=== PATIENT | female | born 1980 | race Caucasian/White ===

== ENCOUNTER 2022-04-27 07:42 | Emergency (ER) | payer BC, SELFPAY ==
--- NOTE | ~2022-04-27 | CT_ITS ---
EXAMINATION: CT HEAD WITHOUT CONTRAST CT FACIAL BONES WITHOUT CONTRAST CT CERVICAL SPINE WITHOUT CONTRAST CLINICAL INFORMATION: Hit head, syncope. Pain. Hit face. COMPARISON: None. TECHNIQUE: Imaging was performed from the skull base to vertex without intravenous administration of contrast. In addition, helical noncontrast CT imaging was acquired through the cervical spine and facial bones and source images were reviewed along with axial reconstructions and sagittal and coronal MPRs. This CT examination was performed using dose optimization techniques as appropriate, variously including the following: *Automated exposure control *Adjustment of mA and/or kV according to patient size (this includes techniques or standardized protocols for targeted exams where dose is matched to indication/reason for exam; i.e. extremities or head) *Use of iterative reconstruction technique Total exam dose-length product 441+750+528 mGy-cm FINDINGS: HEAD: No intracranial mass, hemorrhage, or midline shift is visualized. The ventricles and sulci are age-appropriate. No extra-axial collections are identified. There is some ill-defined low density involving the left frontal cortex, for example series 4 image 34. FACIAL BONES: Left frontal and periorbital soft tissue swelling and hematoma seen. No depressed nasal bone fracture. No facial or orbital bone fracture. There is a fluid level in the right maxillary sinus. Bilateral ethmoid, sphenoid, and maxillary sinus mucosal thickening. CERVICAL SPINE: There is no evidence of acute cervical spine fracture. Vertebral bodies remain normal in height, intervertebral disc spaces are preserved, and alignment is anatomic. No pre- or paravertebral soft tissue abnormality is identified. Limited assessment of the lung apices is unremarkable. CT/CT head/brain wo con IMPRESSION: Ill-defined low attenuation in the left medial frontal cortex. In the setting of acute trauma this could represent an area of parenchymal contusion. Alternatively, an area of evolving encephalomalacia or gliosis could have a similar appearance, though there is no evidence of associated volume loss. An MRI of the brain may be helpful for further evaluation. Left frontal, supraorbital, and periorbital soft tissue swelling and hematoma. No underlying skull fracture. No acute osseous abnormality of the cervical spine. The report will be called to the ordering clinician by a [place] [facility] [employer] [employer].
[2022-04-27 07:47] VITALS: BP 158/98; PULSE 76; RESP 16; TEMP 36.9; O2SAT 98; BMI 29.8
[2022-04-27 09:30] VITALS: BP 154/109; PULSE 71; RESP 11; TEMP 36.7; O2SAT 97
--- NOTE | 2022-04-27 09:48 | ECG_ITS ---
Test Reason : fall Blood Pressure : / mmHG Vent. Rate : 059 BPM Atrial Rate : 059 BPM P-R Int : 158 ms QRS Dur : 084 ms QT Int : 416 ms P-R-T Axes : 061 019 016 degrees QTc Int : 411 ms Sinus bradycardia Otherwise normal ECG No previous ECGs available Referred By: Brenda Lemus Electronically Signed By:Conor Weller
[2022-04-27 10:02] LABS: MANUAL DIFF FLAG NO
[2022-04-27 10:03] LABS: Basophils Absolute Auto 0.1 X10*3/uL (0.0-0.2); Basophils Percent Auto 0.5 % (0-2); Eosinophils Absolute Auto 0.1 X10*3/uL (0.0-0.4); Eosinophils Percent Auto 0.8 % (0-4); Hematocrit 41.6 % (37.0-47.0); Hemoglobin 13.8 g/dl (12.0-16.0); Imm Gran Abs Auto 0.06 X10*3/uL (0.00-0.03); Imm Gran Pct Auto 0.4 % (0.0-0.4); Lymphocytes Absolute Auto 1.2 X10*3/uL (1.2-4.9); Lymphocytes Percent Auto 8.7 % (20-40); Mean Corpuscular HGB Conc 33.2 g/dl (31.0-35.0); Mean Corpuscular Hemoglobin 30.3 pg (27.0-33.0); Mean Corpuscular Volume 91.4 fL (80.0-98.0); Mean Platelet Volume 11.2 fL (9.4-12.3); Monocytes Absolute Auto 0.9 X10*3/uL (0.1-1.2); Monocytes Percent Auto 6.7 % (2-11); Neutrophils Absolute Auto 11.2 x10*3/uL (2.0-8.3); Neutrophils Percent Auto 82.9 % (45-73); Platelet Count 237 X10*3/uL (160-400); Red Blood Count 4.55 X10*6/uL (4.20-5.50); Red Cell Distribution Width 13.6 % (11.0-16.0); White Blood Count 13.5 X10*3/uL (4.8-10.8)
[2022-04-27 10:20] VITALS: BP 159/98; PULSE 66; RESP 18; O2SAT 98
--- NOTE | 2022-04-27 10:22 | ED_ITS ---
HPI - Fall General Chief Complaint: Fall Stated Complaint: passed out hit head, dizzy,neckpain Time Seen by Provider: 04/27/22 09:40 Source: patient Mode of arrival: ambulatory Limitations: no limitations History of Present Illness HPI Narrative: This is a 41-year-old female who has a history of syncopal episodes, anxiety, depression, hypertension presents with reports of fall which occurred while sitting on the toilet. Patient tells me she was sitting on the toilet and had some lower abdominal cramping. She tells me that she started to have tunnel vision and felt lightheaded falling forward striking her face on the tub. She believe she may have had a brief loss of consciousness. The heard her f all and went into the bathroom. He feels that after the fall she was slightly confused. It took her several seconds and she seemed to be back her baseline. He denies any shaking activity. No incontinence. Patient on arrival reports headache and neck discomfort. She denies any dizziness, vision changes, nausea or vomiting. She is not on any anticoagulation. She denies any weakness, numbness or tingling of the upper extremities. No chest or abdominal pain. Related Data Allergies Allergy/AdvReac Type Severity Reaction Status Date / Time Unable to Assess Allergy Verified 04/27/22 09:48 Review of Systems Review of Systems: Yes all other systems are reviewed and are negative Constitutional: Constitutional: Reports no additional constitutional complaints, Denies body ache(s), Denies chills, Denies fever(s), Reports headache(s) and Denies weakness Eyes: Eyes: Reports no additional eye complaints and Denies change in vision ENT: Reports system reviewed and no additional complaints, except as documented, Denies dizziness, Reports headache(s), Denies nasal congestion, Denies nasal discharge and Reports neck pain Cardiovascular: Cardiovascular: Reports no additional cardiovascular complaints, Denies chest pain, Denies leg edema and Denies dyspnea Respiratory: Respiratory: Reports no additional respiratory complaints, Denies cough and Denies dyspnea Gastrointestinal: Gastrointestinal: Reports no additional gastrointestinal complaints, Denies abdominal pain, Denies diarrhea, Denies nausea and Denies vomiting Genitourinary: Genitourinary: Reports no additional female genitourinary com plaints and Denies urinary incontinence Musculoskeletal: Musculoskeletal: Reports no additional musculoskeletal complaints, Denies back pain, Denies arthralgias, Denies joint swelling, Reports neck pain, Denies numbness and Denies tingling Integumentary/Breasts: Skin/Breast: Reports system reviewed and no additional complaints, except as docu and Denies rash Neurologic: Reports system reviewed and no additional complaints, except as documented, Denies Abnormal speech present, Denies dizziness, Reports headache(s), Denies numbness, Denies tingling and Denies weakness ON LICENSE OF [facility] Past Medical History Attestation statement: The following information was validated with the patient. Source: old records reviewed and nursing notes reviewed Medical History Anxiety Depression GERD (gastroesophageal reflux disease) HTN (hypertension) Social History Social History Alcohol intake: current Alcohol intake frequency: a few times a week Patient Tobacco Use Status: Current everyday Tobacco user Use of substances other than those prescribed or required for medical reasons: No Advance Directives: No Advance Directives Information Provided: Yes Patient : No Physical Exam Vital Signs: Vital Signs: Last Vital Signs Temp 98.0 F 04/27/22 09:30 Pulse 68 04/27/22 10:32 Resp 18 04/27/22 10:20 BP 156/105 H 04/27/22 10:32 Pulse Ox 98 04/27/22 10:20 O2 Del Method 04/27/22 10:20 BMI result Body Mass Index 29.8 Const: General: cooperative, healthy appearing, comfortable and no acute distress Orientation/consciousness: patient oriented x3 Limitations: no limitations HEENT: Head: Yes normal to inspection, No Butt's sign and Yes periorbital ecchymosis Head images: 1. Ears: hearing grossly normal bilaterally and TM's normal bilaterally General nose exam: Normal external nose present Face and sinus: Yes normal facial exam Mouth: Normal oral and palatal mucosa present Throat: Yes posterior oropharynx normal, Yes tonsils normal and Yes uvula midline Eyes: General: appearance normal, both eyes and all related structures Pupils: Equal, round and reactive pupils present Neck: Other: Cervical midline tenderness with no step-offs or deformities. Neck: Yes normal visual inspection, Yes full ROM and Yes no lymphadenopathy Chest: Chest palpation & inspection: normal inspection of the chest Resp: Effort & Inspection: normal respiratory effort Auscultation: clear to auscultation bilaterally Cardio: Rate: regular rate Rhythm: regular rhythm Peripheral pulses: Peripheral pulses 2+ throughout GI: Inspection: Yes normal to inspection Palpation (GI): Soft to palpation and nontender Auscultation: normal bowel sounds Back/Spine/Pelvis: Thoracic/Lumbar Spine: thoracic and lumbar spine normal to inspection Skin: General skin exam: no rashes or lesions noted Neuro: General: patient oriented x3, moves all extremities, no focal motor deficits and normal sensation to monofilament Cranial nerves: Yes CN's II-XII intact bilaterally, Yes Equal, round and reactive pupils present, Yes Bilaterally intact EOM present, Yes Nystagmus not present, Yes Normal facial strength present and Yes Midline tongue present Cognition (Neuro): normal cognition Speech: No Abnormal speech present Gait exam (Neuro): Normal gait present Motor exam (neuro): 5/5 motor strength present throughout S ensory Exam: Normal double simultaneous stimulation for sensation Extrem: General: Yes normal to inspection NIH Stroke Scale Internal: Initial- Upon Arrival Level of Consciousness: Alert Level of Consciousness Questions: Answers both questions correctly Level of Consciousness Commands: Performs both tasks correctly Best Gaze: Normal Visual: No visual loss Facial Palsy: Normal Motor Arm (Right): No drift Motor Arm (Left): No drift Motor Leg (Right): No drift Motor Leg (Left): No drift Limb Ataxia: Absent Sensory: Normal Best Language: No aphasia Dysarthia: Normal Extinction and Inattention: No abnormality Score: 0 Course Course Course Narrative: CT head shows IMPRESSION: Ill-defined low attenuation in the left medial frontal cortex. In the setting of acute trauma this could represent an area of parenchymal contusion. Alternatively, an area of evolving encephalomalacia or gliosis could have a similar appearance, though there is no evidence of associated volume loss. An MRI of the brain may be helpful for further evaluation. ? Left frontal, supraorbital, and periorbital soft tissue swelling and hematoma. No underlying skull fracture. No acute osseous abnormality of the cervical spine. -discussed with attending physician Dr. Beaulieu. Due to reports of trauma will discuss with Trauma Service at [facility] determine if transfer warranted Reevaluation(s) Reevaluation #1: [id number]-spoke to Dr. Welsh from [facility] trauma service. Accepted patient as trauma transfer. No ALS crew available. Patient neuro intact. GCS 15. VSS. D/w with attending Dr Martinez. Anthony for BLS transfer as to not delay care further. MDM - Fall MDM Narrative Medical decision making narrative: 41-year-old female with a history of syncopal episodes in the past, high blood pressure, anxiety and depression presents with a fall which occurred while the patient was sitting on the toilet with preceding symptoms of feeling lightheaded, tunnel vision and abdominal cramping. Patient had a head strike with possible brief loss of consciousness. After the fall she seemed confused for several seconds per family but this is resolved. She is back at her baseline per family who was with her. She has a normal neurological exam. She has some periorbital ecchymosis over the left side with no palpable bony crepitus or abnormality. She also has some cervical tenderness with no step- offs or deformities. Will check CT head, neck and cervical spine. Due to reports of syncope patient will also require EKG, labs orthostatic vital signs. -concussion, contusion, intracranial hemorrhage, cervical fracture, cervical sprain, orthostatic hypotension, vasovagal syncope Medical Records Attestation: I reviewed the patient's medical records. Lab Data Attestation: I reviewed the patient's lab results. Result diagrams: 04/27/22 09:57 04/27/22 09:57 Labs: Lab Results 04/27/22 04/27/22 04/27/22 Range/Units 09:57 09:57 09:57 WBC 13.5 H (4.8-10.8) X10*3/uL RBC 4.55 (4.20-5.50) X10*6/uL Hgb 13.8 (12.0-16.0) g/dl Hct 41.6 (37.0-47.0) % MCV 91.4 (80.0-98.0) fL MCH 30.3 (27.0-33.0) pg MCHC 33.2 (31.0-35.0) g/dl RDW 13.6 (11.0-16.0) % Plt Count 237 (160-400) X10*3/uL MPV 11.2 (9.4-12.3) fL Immature Gran % (Auto) 0.4 (0.0-0.4) % Neut % (Auto) 82.9 H (45-73) % Lymph % (Auto) 8.7 L (20-40) % Dodge % (Auto) 6.7 (2-11) % Eos % (Auto) 0.8 (0-4) % Baso % (Auto) 0.5 (0-2) % Lymph # (Auto) 1.2 (1.2-4.9) X10*3/uL Dodge # (Auto) 0.9 (0.1-1.2) X10*3/uL Eos # (Auto) 0.1 (0.0-0.4) X10*3/uL Baso # (Auto) 0.1 (0.0-0.2) X10*3/uL Abs Immat Gran (auto) 0.06 H (0.00-0.03) X10*3/uL Absolute Neuts (auto) 11.2 H (2.0-8.3) x10*3/uL Absolute Nucleated RBC 0.000 (0.0-0.012) X10*3/uL Nucleated RBC % (auto) 0.0 (0.0-0.2) /100WBC Sodium 140 (135-145) mmol/L Potassium 4.6 (3.3-5.1) mmol/L Chloride 108 (96-108) mmol/L Carbon Dioxide 25 (22-29) mmol/L Anion Gap 12 (12-20) BUN 12 (9-16) mg/dL Creatinine 0.81 (0.5-1.4) mg/dL Estim Creat Clear Calc 92.9 Estimated GFR > 60 Random Glucose 95 (60-115) mg/dL Calcium 10.3 H (8.4-10.2) mg/dL Magnesium 2.2 (1.6-2.6) mg/dL Total Bilirubin 0.4 (0.0-1.0) mg/dL Direct Bilirubin 0.2 (0.0-0.5) mg/dL AST 22 (5-31) U/L ALT 23 (0-31) U/L Alkaline Phosphatase 70 (39-117) U/L Troponin I High Sens 4.2 (<3.5-17.0) ng/L Total Protein 6.6 (6.5-8.0) g/dL Albumin 4.3 (3.5-5.0) g/dL Imaging Data Ct head/facial bones/cervical spine: Attestation: I personally reviewed and interpreted this imaging study as follows: Radiologist's impression: IMPRESSION: Ill-defined low attenuation in the left medial frontal cortex. In the setting of acute trauma this could represent an area of parenchymal contusion. Alternatively, an area of evolving encephalomalacia or gliosis could have a similar appearance, though there is no evidence of associated volume loss. An MRI of the brain may be helpful for further evaluation. ? Left frontal, supraorbital, and periorbital soft tissue swelling and hematoma. No underlying skull fracture. No acute osseous abnormality of the cervical spine. ECG Data Attestation: I personally reviewed and interpreted this ECG as follows: ECG interpretation date: 04/27/22 ECG interpretation time: 10:25 Interpretation: Sinus bradycardia with rate of 69, normal VA, normal QRS, normal QT t wave flipped v1, lead 3 Critical Care Time Critical Care Time Critical Care Time: Yes Total Critical Care Time: 60 Attestation: Trauma with brain contusion requiring transfer to tertiary care center Discharge Plan Discharge Clinical Impression: Brain contusion, Syncope Patient Disposition: Xfer Acute Care Hospital Transfer Details: [facility] Interventions: Acute Care Transfer Worksheet (ED) Last Done: 04/27/22 13:14 Discharge Date/Time: 04/27/22 13:17
[2022-04-27] MEDS: Ibuprofen 600 MG TABLET PO (10:25)
[2022-04-27 10:27] LABS: Troponin-I High Sensitivity 4.2 ng/L (<3.5-17.0)
[2022-04-27 10:28] VITALS: BP 153/93; PULSE 64
[2022-04-27 10:28] LABS: Alanine Aminotransferase 23 U/L (0-31); Albumin Level 4.3 g/dL (3.5-5.0); Alkaline Phosphatase 70 U/L (39-117); Anion Gap 12 (12-20); Aspartate Amino Transferase 22 U/L (5-31); Bilirubin Direct 0.2 mg/dL (0.0-0.5); Bilirubin Total 0.4 mg/dL (0.0-1.0); Blood Urea Nitrogen 12 mg/dL (9-16); Calcium 10.3 mg/dL (8.4-10.2); Carbon Dioxide 25 mmol/L (22-29); Chloride 108 mmol/L (96-108); Creatinine Clr Calc Pharmacy 92.9; Estimated Glomerular Filt Rate > 60; Glucose Random 95 mg/dL (60-115); Magnesium 2.2 mg/dL (1.6-2.6); Potassium 4.6 mmol/L (3.3-5.1); Sodium 140 mmol/L (135-145); Total Protein 6.6 g/dL (6.5-8.0)
[2022-04-27 10:29] VITALS: BP 159/102; PULSE 64
[2022-04-27 10:32] VITALS: BP 156/105; PULSE 68
--- NOTE | 2022-04-27 13:13 | PC.NURSE ---
Left via EMS
--- NOTE | 2022-04-27 13:16 | PC.NURSE ---
call to [facility] ed x 2 no answer. unable to give full report.
--- NOTE | 2022-04-27 13:27 | PC.NURSE ---
report given mercedes RN
== END 2022-04-27 13:17 | disposition short-term general hospital (02) ==
PROVIDERS: Nurse Practitioner Family; Emergency Provider Emergency Medicine Emergency Medical Services; PCP Registered Nurse
DX: R55 Syncope and collapse (principal); S06.2X9A Diffuse traumatic brain injury with loss of consciousness of unspecified duration, initial encounter; W18.12XA Fall from or off toilet with subsequent striking against object, initial encounter; R51.9 Headache, unspecified; M54.2 Cervicalgia; I10 Essential (primary) hypertension; F17.200 Nicotine dependence, unspecified, uncomplicated; Y93.89 Activity, other specified; Y92.012 Bathroom of single-family (private) house as the place of occurrence of the external cause; Y99.9 Unspecified external cause status
CPT/HCPCS: 36415; 70450; 70486; 72125; 80048; 80076; 83735; 84484; 85025; 93005; 99284; 99285

== ENCOUNTER 2023-07-29 16:02 | Inpatient (IN) | payer BC, SELFPAY ==
[2023-07-29 16:07] VITALS: BP 167/113; PULSE 98; O2SAT 98
--- NOTE | 2023-07-29 16:12 | ECG_ITS ---
Test Reason : MED/OVERDOSE Blood Pressure : / mmHG Vent. Rate : 088 BPM Atrial Rate : 088 BPM P-R Int : 146 ms QRS Dur : 082 ms QT Int : 364 ms P-R-T Axes : 044 -01 009 degrees QTc Int : 440 ms Normal sinus rhythm Possible Left atrial enlargement Left ventricular hypertrophy ( R in aVL , Victor Manuel product ) Abnormal ECG When compared with ECG of 27-APR-2022 10:25, Vent. rate has increased BY 29 BPM QRS axis Shifted left Referred By: Eleanor Branham Electronically Signed By:MARVA OMALLEY MD
--- NOTE | 2023-07-29 16:35 | ED_ITS ---
HPI - Overdose General Chief Complaint: Overdose Stated Complaint: took 500mg Benadryl yesterday & today. SI, sect 12 Time Seen by Provider: 07/29/23 16:08 Source: patient Mode of arrival: EMS Limitations: no limitations History of Present Illness HPI Narrative: 43 yo female with PMH of depression here with ingestion of benadryl last night about 20 pills of 25mg last night in SI attempt then again this afternoon at 230/3pm 20 tabs 25mg again in SI attempt along with 7 beers. She has had one prior attempt in the past. She did this because she is having a hard time. She notified her friends who called 911. She is on section 12. complaint: intentional overdose Onset (ago): hour(s) (1 to 1.5 hours ago) Timing confirmed by: other (friend) Intent: suicide attempt How Overdose Was Discovered: called family/friend Context: Intentional Overdose: other Associated symptoms: depression Treatments Prior to Arrival: none Related Data Home Medications Medication Instructions Recorded Confirmed albuterol sulfate 90 mcg/actuation 1 puff inhalation Q4H PRN Anxiety 07/29/23 07/29/23 aerosol inhaler lorazepam 0.5 mg tablet 0.5 mg PO BID PRN panic attack 07/29/23 07/29/23 Allergies Allergy/AdvReac Type Severity Reaction Status Date / Time No Known Allergies Allergy Verified 07/29/23 21:10 Review of Systems 2 Review of Systems: Constitutional : No Fever, No Chills ENT/Mouth : No Ear Pain, No Nasal Congestion, No sore throat Eyes: No Eye Pain, No Swelling, No Redness Cardiovascular : No Chest Pain, No SOB Respiratory : No Cough, No Sputum, No Dyspnea Gastrointestinal : No Nausea, No Vomiting, No Diarrhea, No Hematochezia, No Melena Genitourinary : No Dysuria, No Urinary Frequency, No Hematuria Musculoskeletal : No Myalgias Skin : No Skin Lesions, No rash Neuro : No Weakness, No Numbness, No Paresthesias, No Dizziness, No Headache Psych : positive Anxiety, positive Depression, positive SI no HI Heme/Lymph: No Lymphadenopathy Endocrine : No Polyuria, No Polydipsia All other systems reviewed and are negative [facility] Past Medical History Attestation statement: The following information was validated with the patient. Medical History GERD (gastroesophageal reflux disease) Depression Anxiety HTN (hypertension) Social History Social History Alcohol intake: current Alcohol intake frequency: 3 or more drinks per day Alcohol type: beer Patient Tobacco Use Status: Current everyday Tobacco user Smoked in Last 30 Days: Yes Use of substances other than those prescribed or required for medical reasons: No Advance Directives: No Advance Directives Information Provided: Yes Physical Exam 2 Vital Signs: Vital Signs: Last Vital Signs Temp 98.0 F 07/29/23 21:40 Pulse 68 07/29/23 21:40 Resp 14 07/29/23 21:40 BP 118/78 07/29/23 21:40 Pulse Ox 98 07/29/23 21:40 O2 Del Method Room Air 07/29/23 21:40 BMI result Body Mass Index 33.3 Appearance: Alert. Oriented X3. No acute distress. Eyes: Pupils equal, round and reactive to light. ENT: Pharynx normal. 3mm Neck: Normal inspection. Neck supple. CVS: Normal heart rate and rhythm. Pulses normal. Respiratory: No respiratory distress. Breath sounds normal. Abdomen: Soft and nontender. Skin: Skin warm and dry. Normal skin color. Normal skin turgor. Extremities: No lower extremity edema. No calf ttp Neuro: Oriented X 3. No motor deficit. No sensory deficit. no clonus no hyperreflexia. CN2-12 intact Course Course Course Narrative: Physician observation started at 1833 Patient placed in physician observation because the patient needed more time for observation of overdose and CARE team to assess the need for psych admission. At the time observation was started the patient's vitals were stable, patient is alert and oriented, Neuro: nonfocal, CV RRR, Lungs clear cleared by poison control - normal EKG x 3, asymptomatic patient will refer to CARE team 853pm Medications Administered Discontinued Medications Generic Name Dose Route Start Last Admin Trade Name Freq PRN Reason Stop Dose Admin Charcoal 50 gm 07/29/23 16:12 07/29/23 16:37 Activated Charcoal 50 Gm/240 Ml Oral.Susp PO 07/29/23 16:13 50 gm ONCE ONE Administration Sodium Chloride 1,000 mls @ 999 mls/hr 07/29/23 16:15 07/29/23 19:16 Ns IV 07/29/23 17:15 Infused .Q1H1M ERIC Infusion Ondansetron HCl 4 mg 07/29/23 16:12 07/29/23 16:37 Ondansetron Hcl 4 Mg/2 Ml Vial IVPUSH 07/29/23 16:13 4 mg ONCE ONE Administration Medical Decision Making Medical Decision Making [facility] Narrative: 43 yo female with SI attempt and ingestion of benadryl at this time no acute signs of active ingestion will place IV line, attempt charcoal as she is within the window and start tox labs and tele monitoring. Will consult poison control as well. 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 07/29/23 16:44 07/29/23 16:44 Labs: Lab Results 07/29/23 07/29/23 07/29/23 Range/Units 16:44 16:45 16:52 WBC 9.8 (4.8-10.8) X10*3/uL RBC 4.42 (4.20-5.50) X10*6/uL Hgb 12.6 (12.0-16.0) g/dl Hct 38.5 (37.0-47.0) % MCV 87.1 (80.0-98.0) fL MCH 28.5 (27.0-33.0) pg MCHC 32.7 (31.0-35.0) g/dl RDW 13.6 (11.0-16.0) % Plt Count 276 (160-400) X10*3/uL MPV 11.6 (9.4-12.3) fL Immature Gran % (Auto) 0.2 (0.0-0.4) % Neut % (Auto) 74.7 H (45-73) % Lymph % (Auto) 12.8 L (20-40) % Angelina % (Auto) 8.2 (2-11) % Eos % (Auto) 3.4 (0-4) % Baso % (Auto) 0.7 (0-2) % Lymph # (Auto) 1.3 (1.2-4.9) X10*3/uL Angelina # (Auto) 0.8 (0.1-1.2) X10*3/uL Eos # (Auto) 0.3 (0.0-0.4) X10*3/uL Baso # (Auto) 0.1 (0.0-0.2) X10*3/uL Abs Immat Gran (auto) 0.02 (0.00-0.03) X10*3/uL Absolute Neuts (auto) 7.3 (2.0-8.3) x10*3/uL Absolute Nucleated RBC 0.000 (0.0-0.012) X10*3/uL Nucleated RBC % (auto) 0.0 (0.0-0.2) /100WBC PT 11.4 (11.1-13.3) SEC INR 0.9 (0.9-1.1) VBG pH (7.32-7.43) VBG pCO2 mmHg VBG pO2 mmHg VBG HCO3 (22-26) mmol/L VBG O2 Saturation % VBG Base Excess mmol/L Sodium 140 (135-145) mmol/L Potassium 3.7 (3.3-5.1) mmol/L Chloride 109 H (96-108) mmol/L Carbon Dioxide 22 (22-29) mmol/L Anion Gap 13 (12-20) BUN 15 (9-16) mg/dL Creatinine 1.05 (0.5-1.4) mg/dL Estim Creat Clear Calc 71.5 Estimated GFR 57 Random Glucose 86 (60-115) mg/dL Calcium 11.5 H D (8.4-10.2) mg/dL Magnesium 2.2 (1.6-2.6) mg/dL Total Bilirubin 0.3 (0.0-1.0) mg/dL Direct Bilirubin 0.1 (0.0-0.5) mg/dL AST 27 (5-31) U/L ALT 27 (0-31) U/L Alkaline Phosphatase 63 (39-117) U/L Total Protein 7.0 (6.5-8.0) g/dL Albumin 4.3 (3.5-5.0) g/dL Beta HCG, Quant < 2 mIU/mL Urine Color Urine Appearance Urine pH (5.0-9.0) Ur Specific [place] (1.005-1.025) Urine Protein (Neg-Trace) mg/dL Urine Glucose (UA) (Negative) mg/dL Urine Ketones (Negative) mg/dL Urine Blood (Negative) Urine Nitrite (Negative) Ur Leukocyte Esterase (Negative) Urine RBC (0-2) /HPF Urine WBC (0-5) /HPF Ur Squamous Epith Cells (0-2) /HPF Urine Bacteria (None Seen) Hyaline Casts (0-2) /LPF Salicylates < 5.0 L (15-30) mg/dL Urine Opiates Screen (Not Detect) Urine Fentanyl Screen (Not Detect) Acetaminophen < 17 (<30) mcg/mL Ur Barbiturates Screen (Not Detect) Ur Phencyclidine Scrn (Not Detect) Ur Amphetamines Screen (Not Detect) U Benzodiazepines Scrn (Not Detect) Urine Cocaine Screen (Not Detect) U Marijuana (THC) Screen (Not Detect) Ethyl Alcohol < 10 mg/dL COVID-19 (NAHUN) Negative (Negative) COVID-19 Clin Com See Note 07/29/23 07/29/23 Range/Units 16:53 17:41 WBC (4.8-10.8) X10*3/uL RBC (4.20-5.50) X10*6/uL Hgb (12.0-16.0) g/dl Hct (37.0-47.0) % MCV (80.0-98.0) fL MCH (27.0-33.0) pg MCHC (31.0-35.0) g/dl RDW (11.0-16.0) % Plt Count (160-400) X10*3/uL MPV (9.4-12.3) fL Immature Gran % (Auto) (0.0-0.4) % Neut % (Auto) (45-73) % Lymph % (Auto) (20-40) % Angelina % (Auto) (2-11) % Eos % (Auto) (0-4) % Baso % (Auto) (0-2) % Lymph # (Auto) (1.2-4.9) X10*3/uL Angelina # (Auto) (0.1-1.2) X10*3/uL Eos # (Auto) (0.0-0.4) X10*3/uL Baso # (Auto) (0.0-0.2) X10*3/uL Abs Immat Gran (auto) (0.00-0.03) X10*3/uL Absolute Neuts (auto) (2.0-8.3) x10*3/uL Absolute Nucleated RBC (0.0-0.012) X10*3/uL Nucleated RBC % (auto) (0.0-0.2) /100WBC PT (11.1-13.3) SEC INR (0.9-1.1) VBG pH 7.43 (7.32-7.43) VBG pCO2 31 mmHg VBG pO2 53 mmHg VBG HCO3 21 L (22-26) mmol/L VBG O2 Saturation 76.0 % VBG Base Excess -2.2 mmol/L Sodium (135-145) mmol/L Potassium (3.3-5.1) mmol/L Chloride (96-108) mmol/L Carbon Dioxide (22-29) mmol/L Anion Gap (12-20) BUN (9-16) mg/dL Creatinine (0.5-1.4) mg/dL Estim Creat Clear Calc Estimated GFR Random Glucose (60-115) mg/dL Calcium (8.4-10.2) mg/dL Magnesium (1.6-2.6) mg/dL Total Bilirubin (0.0-1.0) mg/dL Direct Bilirubin (0.0-0.5) mg/dL AST (5-31) U/L ALT (0-31) U/L Alkaline Phosphatase (39-117) U/L Total Protein (6.5-8.0) g/dL Albumin (3.5-5.0) g/dL Beta HCG, Quant mIU/mL Urine Color Yellow Urine Appearance Clear Urine pH 5.5 (5.0-9.0) Ur Specific [place] <= 1.005 (1.005-1.025) Urine Protein Negative (Neg-Trace) mg/dL Urine Glucose (UA) Negative (Negative) mg/dL Urine Ketones 15 (Negative) mg/dL Urine Blood Negative (Negative) Urine Nitrite Negative (Negative) Ur Leukocyte Esterase Trace H (Negative) Urine RBC 0-2 (0-2) /HPF Urine WBC 0-5 (0-5) /HPF Ur Squamous Epith Cells 6-10 (0-2) /HPF Urine Bacteria Trace (None Seen) Hyaline Casts 0-2 (0-2) /LPF Salicylates (15-30) mg/dL Urine Opiates Screen Not Detected (Not Detect) Urine Fentanyl Screen Not Detected (Not Detect) Acetaminophen (<30) mcg/mL Ur Barbiturates Screen Not Detected (Not Detect) Ur Phencyclidine Scrn Not Detected (Not Detect) Ur Amphetamines Screen Not Detected (Not Detect) U Benzodiazepines Scrn Not Detected (Not Detect) Urine Cocaine Screen Not Detected (Not Detect) U Marijuana (THC) Screen Not Detected (Not Detect) Ethyl Alcohol mg/dL COVID-19 (NAHUN) (Negative) COVID-19 Clin Com Independent Interpretation I performed an independent interpretation of an: EKG Interpretation: Rate: 88 Rhythm: NSR [place]: left , LVH Normal P waves. Normal ROLAN. Normal QRS complex. ST T wave : normal no TOBY qTC: 440 prior studies: no acute ischemia The study has been interpreted contemporaneously by me. EKG #2 Rate: 80 Rhythm: NSR [place]: normal Normal P waves. Normal ROLAN. Normal QRS complex. ST T wave : no TOBY qTC: 429 prior studies: unchanged The study has been interpreted contemporaneously by me. Rate: 74 Rhythm: NSR [place]: normal Normal P waves. Normal ROLAN. Normal QRS complex. ST T wave : normal no TOBY qTC: normal prior studies: no acute ischemia The study has been interpreted contemporaneously by me. . Independent Historian Clinical information obtained from an independent historian. History obtained from or confirmed by: EMS Critical Care Time Critical Care Time Critical Care Time: Yes Total Critical Care Time: 35 Attestation: repeat tele and EKG for overdose and concern for arrhythmia given overdose I attest to this time spent taking care of the patient Discharge Plan Discharge Clinical Impression: Suicide attempt Patient Disposition: Still a Patient Prescriptions: No Action lorazepam 0.5 mg tablet 0.5 mg PO BID PRN (Reason: panic attack) albuterol sulfate 90 mcg/actuation HFA aerosol inhaler 1 puff inhalation Q4H PRN (Reason: Anxiety)
[2023-07-29] MEDS: Activated charcoaL 50 GM/240 ML ORAL.SUSP PO (16:37)
[2023-07-29] MEDS: ondansetron HCL 4 MG/2 ML VIAL IVPUSH (16:37)
[2023-07-29] MEDS: 0.9 % Sodium Chloride 1,000 ML 999 ML IV (16:39)
[2023-07-29 16:45] VITALS: BP 165/99; PULSE 94; RESP 18; TEMP 36.8; O2SAT 100; BMI 33.3
[2023-07-29 16:51] LABS: MANUAL DIFF FLAG NO
[2023-07-29 16:58] LABS: Venous Blood Gas Refer to POC result
[2023-07-29 16:58] LABS: VBG Base Excess -2.2 mmol/L; VBG HCO3 21 mmol/L (22-26); VBG pCO2 31 mmHg; VBG pH 7.43 (7.32-7.43); VBG pO2 53 mmHg
[2023-07-29 16:59] LABS: Basophils Absolute Auto 0.1 X10*3/uL (0.0-0.2); Basophils Percent Auto 0.7 % (0-2); Eosinophils Absolute Auto 0.3 X10*3/uL (0.0-0.4); Eosinophils Percent Auto 3.4 % (0-4); Hematocrit 38.5 % (37.0-47.0); Hemoglobin 12.6 g/dl (12.0-16.0); Imm Gran Abs Auto 0.02 X10*3/uL (0.00-0.03); Imm Gran Pct Auto 0.2 % (0.0-0.4); Lymphocytes Absolute Auto 1.3 X10*3/uL (1.2-4.9); Lymphocytes Percent Auto 12.8 % (20-40); Mean Corpuscular HGB Conc 32.7 g/dl (31.0-35.0); Mean Corpuscular Hemoglobin 28.5 pg (27.0-33.0); Mean Corpuscular Volume 87.1 fL (80.0-98.0); Mean Platelet Volume 11.6 fL (9.4-12.3); Monocytes Absolute Auto 0.8 X10*3/uL (0.1-1.2); Monocytes Percent Auto 8.2 % (2-11); Neutrophils Absolute Auto 7.3 x10*3/uL (2.0-8.3); Neutrophils Percent Auto 74.7 % (45-73); Platelet Count 276 X10*3/uL (160-400); Red Blood Count 4.42 X10*6/uL (4.20-5.50); Red Cell Distribution Width 13.6 % (11.0-16.0); White Blood Count 9.8 X10*3/uL (4.8-10.8)
[2023-07-29 17:04] LABS: INTERNATIONAL NORM RATIO 0.9 (0.9-1.1); Prothrombin Time 11.4 SEC (11.1-13.3)
[2023-07-29 17:10] LABS: Alanine Aminotransferase 27 U/L (0-31); Albumin Level 4.3 g/dL (3.5-5.0); Alkaline Phosphatase 63 U/L (39-117); Anion Gap 13 (12-20); Aspartate Amino Transferase 27 U/L (5-31); Bilirubin Direct 0.1 mg/dL (0.0-0.5); Bilirubin Total 0.3 mg/dL (0.0-1.0); Blood Urea Nitrogen 15 mg/dL (9-16); Calcium 11.5 mg/dL (8.4-10.2); Carbon Dioxide 22 mmol/L (22-29); Chloride 109 mmol/L (96-108); Creatinine Clr Calc Pharmacy 71.5; Estimated Glomerular Filt Rate 57; Glucose Random 86 mg/dL (60-115); Magnesium 2.2 mg/dL (1.6-2.6); Potassium 3.7 mmol/L (3.3-5.1); Sodium 140 mmol/L (135-145)
[2023-07-29 17:10] LABS: COVID-19 Test Negative (Negative); IDNOW Serial# 55D5AD1C
[2023-07-29 17:12] LABS: Ethanol < 10 mg/dL
[2023-07-29 17:13] LABS: Acetaminophen LAB < 17 mcg/mL (<30); Salicylate < 5.0 mg/dL (15-30)
[2023-07-29 17:46] LABS: Appearance Urine Clear; Color Urine Yellow; Glucose Urine UA Negative (Negative); Leukocyte Esterase Urine Trace (Negative); Nitrite Urine Negative (Negative); PH 5.5 (5.0-9.0); Specific Gravity - Urine <= 1.005 (1.005-1.025); UMIC TRIGGER UACC YES; Urine Blood Negative (Negative); Urine Ketones 15 mg/dL (Negative); Urine Protein Negative (Neg-Trace)
[2023-07-29 17:51] LABS: Bacteria Urine Trace (None Seen); Hyaline Casts Urine 0-2 /LPF (0-2); RBC Urine 0-2 /HPF (0-2); WBC Urine 0-5 /HPF (0-5)
--- NOTE | 2023-07-29 17:52 | ECG_ITS ---
Test Reason : REPEAT Blood Pressure : / mmHG Vent. Rate : 080 BPM Atrial Rate : 080 BPM P-R Int : 152 ms QRS Dur : 086 ms QT Int : 372 ms P-R-T Axes : 037 007 001 degrees QTc Int : 429 ms Normal sinus rhythm Minimal voltage criteria for LVH, may be normal variant ( R in aVL ) Borderline ECG When compared with ECG of 29-JUL-2023 16:27, No significant change was found Referred By: Alondra Connor Electronically Signed By:MARVA OMALLEY MD
[2023-07-29 17:54] LABS: Amphetamine Screen Urine Not Detected (Not Detect); Barbiturates, Urine Not Detected (Not Detect); Benzodiazepines Screen Urine Not Detected (Not Detect); Cannabinoid Screen Urine Not Detected (Not Detect); Cocaine Screen Urine Not Detected (Not Detect); Fentanyl, urine Not Detected (Not Detect); Opiate Screen Urine Not Detected (Not Detect); Phencyclidine Screen Urine Not Detected (Not Detect)
--- NOTE | 2023-07-29 18:31 | PC.NURSE ---
called poison control for patient, recommendation is for patient to have repeated ekgs at 1630 and 2030. Recommendation if patient becomes agitated is to give benzodiazapines for agitation management.
--- NOTE | 2023-07-29 20:30 | ECG_ITS ---
Test Reason : MEDICAL CLEARANCE Blood Pressure : / mmHG Vent. Rate : 074 BPM Atrial Rate : 074 BPM P-R Int : 154 ms QRS Dur : 080 ms QT Int : 396 ms P-R-T Axes : 035 009 005 degrees QTc Int : 439 ms Normal sinus rhythm Minimal voltage criteria for LVH, may be normal variant ( R in aVL ) Borderline ECG When compared with ECG of 29-JUL-2023 18:26, No significant change was found Referred By: Alondra Connor Electronically Signed By:MARVA OMALLEY MD
[2023-07-29 21:05] LABS: HCG Quantitative < 2 mIU/mL
[2023-07-29 21:40] VITALS: BP 118/78; PULSE 68; RESP 14; TEMP 36.7; O2SAT 98
--- NOTE | 2023-07-29 23:56 | PC.NURSE ---
Patient is currently in bed appears sleeping, no distress observed/reported, per report patient was cleared by poison control, med rec completed/pending provider's approval, care consult ordered for SI/pending evaluation in the morning, labs completed/resulted, VSS, will continue to monitor.
[2023-07-30 05:57] VITALS: RESP 14
[2023-07-30] MEDS: Acetaminophen 325 MG TABLET 975 MG PO (06:12)
--- NOTE | 2023-07-30 07:03 | PC.NURSE ---
patient appears to remain asleep at present respirations are even and unlabored patient appears in no distress
[2023-07-30 08:16] VITALS: BP 140/86; PULSE 73; RESP 19; TEMP 36.9; O2SAT 100
[2023-07-30] MEDS: Acetaminophen 325 MG TABLET 650 MG PO (12:36)
--- NOTE | 2023-07-30 14:09 | PHA.MEDREC ---
Pharmacy Consult ? Medication Reconciliation Pharmacy has reviewed the medication reconciliation completed by Renzo. Per pharmacy claim history multiple medications were missing. Spoke with Jeanette to confirm if patient still taking Nebivolol 20 mg daily, bupropion SR 150 mg BID, fluoxetine 20 mg daily and omeprazole 20 mg daily. Patient confirmed and also report benadryl and cetirizine at bedtime. Katerine Rodriguez, PharmD
--- NOTE | 2023-07-31 00:27 | PC.ADMIT ---
A , white, Bulgarian-speaking female, aged 43 years was [facility] at 2030 following referral from [facility] and CARE team. Pt reports this is her first psychiatric admission, but said about 20 years ago she attempted suicide via O/D and was not hospitalized. Pt presented at [facility] on 07/29/23 via ambulance following an intentional overdose of approximately 20, 25mg tabs of Benadryl with 7 beers. Pt was assessed by CARE team and endorsed SI identifying marital issues as a precipitant. Pt is thought to have informed a friend or spouse of the attempt and EMS was called. Pt denied current SI during admission assessment and said can seek help from staff if needed. Pt stated she would like to d/c as soon as possible. Pt signed a 3 day notice that is up on 08/02/23. Pt is open to medication management, but would like to be on as few meds as possible. Pt is open to being connected with a therapist and psychiatric medication prescriber. Pt reported a history of trauma, but declined to offer more detail. Pt denies history of self harming behaviors. Pt denies HI, AVH. Pt rated anxiety 5/10 and was unable to rate depression, but said was higher than her anxiety. Pt reports a long struggle with depressive symptoms, but said it has been worse for some time. Pt reports decreased appetite and sleep disruption a times during her cycle. Pt was tearful during assessment, speaking softly and averting eyes from this keno writer / runner frequently. Pt was cooperative with admission. Utox is negative; pt reports Etoh use 1-2 drinks 2-3 times weekly. Medical issues include HTN and asthma. [id number] done, admission orders obtained, skin check don upon arrival to unit. Safety tool and initial treatment plan done, but need to be signed. Pt is resting in room on 15 minute safety checks at this time.
[2023-07-31] MEDS: Omeprazole 20 MG CAPSULE.DR PO (06:29)
[2023-07-31 08:00] VITALS: BP 134/104; PULSE 79; RESP 16; TEMP 37.1; O2SAT 98
[2023-07-31] MEDS: FLUoxetine HCl 20 MG CAPSULE PO (09:01)
[2023-07-31 09:33] LABS: Estimated Average Glucose 105 mg/dL; Hemoglobin A1c % 5.3 % (<6.0)
[2023-07-31 09:44] LABS: Alanine Aminotransferase 24 U/L (0-31); Albumin Level 4.2 g/dL (3.5-5.0); Alkaline Phosphatase 64 U/L (39-117); Anion Gap 13 (12-20); Aspartate Amino Transferase 19 U/L (5-31); Bilirubin Total 0.4 mg/dL (0.0-1.0); Blood Urea Nitrogen 11 mg/dL (9-16); Calcium 10.6 mg/dL (8.4-10.2); Carbon Dioxide 22 mmol/L (22-29); Chloride 108 mmol/L (96-108); Cholesterol 184 mg/dL (<200); Creatinine Clr Calc Pharmacy 102.8; Estimated Glomerular Filt Rate > 60; Glucose Fasting 80 mg/dL (60-99); HDL Cholesterol 53 mg/dL (>40); LDL Cholesterol Calculated 106 mg/dL (<100); Potassium 4.2 mmol/L (3.3-5.1); Sodium 139 mmol/L (135-145); Triglycerides 125 mg/dL (<150)
[2023-07-31 10:12] LABS: Folate 13.5 ng/mL (> or = 4.0); Vitamin B12 1005 pg/mL (200-900)
--- NOTE | 2023-07-31 17:29 | P.HPPS_ITS ---
HPI Date of Service: 07/31/23 Chief Complaint: SI Sources of Information: patient interviewed, chart reviewed and crisis/core team assessment reviewed HPI Subjective Notes: Schwartz Warning and Conditional Voluntary Healthcare Proxy: No Guardianship: No Medical Problems Affecting Mental Status: No Narrative: 43 yo female, here via ambulance s/p taking Benadryl 20 tabs of 25 mg with ~6-7 beers. Pt informed a friend who assisted her to ER. Precipitant being relationship issues. Pt was not interested in an admission and today is wanting to explain what happened and plan discharge. She reports rx with Wellbutrin and Prozac which has been effective. She reports that she is in an open relationship with partner of seven years. They have an agreement that they see other people if they want to, the condition being they inform the other whom they are seeing. Pt recently learned that partner was seeing another person and did not inform her. She felt this was secretive and made a conclusion that partner would be precipitously leaving her, thus the decline and overdose. This assumption was made without consulting with the partner or confronting him. Since the overdose and ER visit, she reports she was able to discuss this issue with her partner and reports she was incorrect, their relationship is intact and she is feeling very uncomfortable on an acute psychiatric unit. She asks for discharge and will accept OP therapy referral. Team has discussed this with partner and he is supportive of taking further treatment to a provider of her choice and dischaging from inpatient. He has visited pt while on the unit. Past Psychiatric History: IP: None OP: Prescriber is PCP Yvette Pearce [facility] [phone] SA: In her adolesence Trials: Prozac, Wellbutrin Medical Evaluation Reviewed: Yes [facility] Medical History (Updated 08/01/23 @ 15:47 by Janene Eisenberg APRN) Major depression GERD (gastroesophageal reflux disease) Depression Anxiety HTN (hypertension) Family History: None that she is aware of Social History: Born in [place]. 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 Substance History: Denies Social alcohol use Trauma History: Affirms Diagnostics Vital Signs (24Hr): Vital Signs - 24 hr 07/31/23 08:00 Temperature 98.8 F Pulse Rate 79 Respiratory Rate 16 Blood Pressure 134/104 H Pulse Oximetry 98 Oxygen Delivery Method Room Air BMI result Body Mass Index 33.3 Labs 07/29/23 16:44 07/31/23 08:13 Labs: Laboratory Results - last 48 hr 07/29/23 07/29/23 07/31/23 16:44 17:41 08:13 Sodium 139 Potassium 4.2 Chloride 108 Carbon Dioxide 22 Anion Gap 13 BUN 11 Creatinine 0.73 Estim Creat Clear Calc 102.8 Estimated GFR > 60 Fasting Glucose 80 Estimat Average Glucose 105 Hemoglobin A1c % 5.3 Calcium 10.6 H D Total Bilirubin 0.4 AST 19 ALT 24 Alkaline Phosphatase 64 Total Protein 7.0 Albumin 4.2 Triglycerides 125 Cholesterol 184 LDL Cholesterol, Calc 106 H HDL Cholesterol 53 Vitamin B12 1005 H Folate 13.5 TSH 0.50 Beta HCG, Quant < 2 Urine Color Yellow Urine Appearance Clear Urine pH 5.5 Ur Specific [place] <= 1.005 Urine Protein Negative Urine Glucose (UA) Negative Urine Ketones 15 Urine Blood Negative Urine Nitrite Negative Ur Leukocyte Esterase Trace H Urine RBC 0-2 Urine WBC 0-5 Ur Squamous Epith Cells 6-10 Urine Bacteria Trace Hyaline Casts 0-2 Urine Opiates Screen Not Detected Urine Fentanyl Screen Not Detected Ur Barbiturates Screen Not Detected Ur Phencyclidine Scrn Not Detected Ur Amphetamines Screen Not Detected U Benzodiazepines Scrn Not Detected Urine Cocaine Screen Not Detected U Marijuana (THC) Screen Not Detected Meds/Allergies Meds Home Medications Medication Instructions Recorded Confirmed Type albuterol sulfate 90 mcg/actuation 1 puff inhalation Q4H PRN Anxiety 07/29/23 07/29/23 History aerosol inhaler lorazepam 0.5 mg tablet 0.5 mg PO BID PRN panic attack 07/29/23 07/29/23 History bupropion HCl (smoking deter) 150 150 mg PO BID 07/30/23 07/30/23 History mg tablet,12 hr sustained-release(smoking deterrent) cetirizine 10 mg tablet 10 mg PO BEDTIME 07/30/23 07/30/23 History diphenhydramine HCl 25 mg tablet 25 mg PO BEDTIME PRN Insomnia 07/30/23 07/30/23 History fluoxetine 20 mg capsule 20 mg PO DAILY 07/30/23 07/30/23 History nebivolol 20 mg tablet 20 mg PO QPM 10/24/23 10/24/23 History omeprazole 10 mg capsule,delayed 10 mg PO DAILY 07/30/23 07/30/23 History release Allergies Allergies Allergy/AdvReac Type Severity Reaction Status Date / Time No Known Allergies Allergy Verified 07/29/23 21:10 Mental Status Exam Mental Status Exam Patient Appearance: Appropriate Patient Orientation: Person, Place, Time and Situation Level of Consciousness: Appropriate and Alert Patient Behavior: Appropriate, Talkative and Good Eye Contact Mood Description: Apprehensive Affect Description: Apprehensive Patient Cognition Impaired: No Ability to Follow Directions: Good Speech Pattern: Spontaneous Speech Memory Description: Intact Hallucinations: None Delusions: Not Present Thought Process: Intact and Goal Oriented Thought Content: positive for Intact, positive for Goal Oriented and positive for Suicidal Ideation (denies) Depressive Symptoms: Thoughts of /Suicide (denies) Judgement: Good Assessment & Plan Assessment & Plan (1) Major depression: Status: Acute Code(s): F32.9 - Major depressive disorder, single episode, unspecified (2) Suicide attempt: Status: Acute Code(s): T14.91XA - Suicide attempt, initial encounter Plan 43 yo female, s/p impulsive benadryl overdose with 7 beers in response to belief that her was going to leave her as he did not adhere to their agreement of informing her of a current relationship with another (the couple have an open relationship for seven years by choice). Pt is remoseful, discussed the impulsivity of her actions and asks to pursue treatment at a lower level of care as she believes she does not belong on an inpatient psychiatric unit. concurs after discussion with Akilah Rosen [facility]. Plan: Continue current regime Discharge to out patient care on 08/01/23. Patient educated on: medication risk/benefits and therapeutic strategies Informed Consent: understands Reason for continued inpatient stay Substantial Risk for: stable for discharge Statement Statement: I have reviewed the history and physical and performed a pertinent examination on my patient. No changes have occurred unless specified. If the History and Physical was not performed prior to admission, the Hospitalist's service will be consulted for completing the admission physical. Time Spent With Patient Time: Total time managing care of this patient today ____ minutes.
[2023-07-31 22:00] VITALS: BP 143/81; PULSE 82; TEMP 36.3
[2023-08-01] MEDS: Omeprazole 20 MG CAPSULE.DR PO (06:27)
[2023-08-01 08:00] VITALS: BP 157/98; PULSE 67; RESP 16; TEMP 36.1; O2SAT 100
[2023-08-01] MEDS: FLUoxetine HCl 20 MG CAPSULE PO (09:40)
[2023-08-01] MEDS: buPROPion HCL 75 MG TABLET 150 MG PO (09:40)
--- NOTE | 2023-08-01 10:11 | PM.PSYDC ---
DS: Providers Provider Date of Service: 08/01/23 Date of admission: 07/30/23 19:44 Date of discharge: 08/01/23 Primary care physician: Yvette Pearce DNP Admitting clinician: Janene Eisenberg Attending physician on admission: Yovani Garcia Attending physician on discharge: Yovani Garcia Discharging clinician: Janene Eisenberg DS: Medications Discharge Medications Home Medications: Home Medications Medication Instructions Recorded Confirmed albuterol sulfate 90 mcg/actuation 1 puff inhalation Q4H PRN Anxiety 07/29/23 07/29/23 aerosol inhaler lorazepam 0.5 mg tablet 0.5 mg PO BID PRN panic attack 07/29/23 07/29/23 bupropion HCl (smoking deter) 150 150 mg PO BID 07/30/23 07/30/23 mg tablet,12 hr sustained-release(smoking deterrent) cetirizine 10 mg tablet 10 mg PO BEDTIME 07/30/23 07/30/23 diphenhydramine HCl 25 mg tablet 25 mg PO BEDTIME PRN Insomnia 07/30/23 07/30/23 fluoxetine 20 mg capsule 20 mg PO DAILY 07/30/23 07/30/23 nebivolol 20 mg tablet 20 mg PO QPM 07/30/23 07/30/23 omeprazole 10 mg capsule,delayed 10 mg PO DAILY 07/30/23 07/30/23 release Mental Status Exam Mental Status Exam Patient Appearance: Appropriate Patient Orientation: Person, Place, Time and Situation Level of Consciousness: Appropriate and Alert Patient Behavior: Appropriate, Talkative and Good Eye Contact Mood Description: Apprehensive Affect Description: Apprehensive Patient Cognition Impaired: No Ability to Follow Directions: Good Speech Pattern: Spontaneous Speech Memory Description: Intact Hallucinations: None Delusions: Not Present Thought Process: Intact and Goal Oriented Thought Content: positive for Intact, positive for Goal Oriented and positive for Suicidal Ideation (denies) Depressive Symptoms: Thoughts of /Suicide (denies) Judgement: Good Data Data Completed and Pending Completed studies during hospitalization [Text1]: 07/29/23 07/29/23 07/29/23 16:44 16:45 16:52 WBC 9.8 RBC 4.42 Hgb 12.6 Hct 38.5 MCV 87.1 MCH 28.5 MCHC 32.7 RDW 13.6 Plt Count 276 MPV 11.6 Immature Gran % (Auto) 0.2 Neut % (Auto) 74.7 H Lymph % (Auto) 12.8 L [place] % (Auto) 8.2 Eos % (Auto) 3.4 Baso % (Auto) 0.7 Lymph # (Auto) 1.3 [place] # (Auto) 0.8 Eos # (Auto) 0.3 Baso # (Auto) 0.1 Abs Immat Gran (auto) 0.02 Absolute Neuts (auto) 7.3 Absolute Nucleated RBC 0.000 Nucleated RBC % (auto) 0.0 PT 11.4 INR 0.9 VBG pH VBG pCO2 VBG pO2 VBG HCO3 VBG O2 Saturation VBG Base Excess Sodium 140 Potassium 3.7 Chloride 109 H Carbon Dioxide 22 Anion Gap 13 BUN 15 Creatinine 1.05 Estim Creat Clear Calc 71.5 Estimated GFR 57 Random Glucose 86 Fasting Glucose Estimat Average Glucose Hemoglobin A1c % Calcium 11.5 H D Magnesium 2.2 Total Bilirubin 0.3 Direct Bilirubin 0.1 AST 27 ALT 27 Alkaline Phosphatase 63 Total Protein 7.0 Albumin 4.3 Triglycerides Cholesterol LDL Cholesterol, Calc HDL Cholesterol Vitamin B12 Folate TSH Beta HCG, Quant < 2 PTH Intact Calcium (PTH Intact) Urine Color Urine Appearance Urine pH Ur Specific [place] Urine Protein Urine Glucose (UA) Urine Ketones Urine Blood Urine Nitrite Ur Leukocyte Esterase Urine RBC Urine WBC Ur Squamous Epith Cells Urine Bacteria Hyaline Casts Salicylates < 5.0 L Urine Opiates Screen Urine Fentanyl Screen Acetaminophen < 17 Ur Barbiturates Screen Ur Phencyclidine Scrn Ur Amphetamines Screen U Benzodiazepines Scrn Urine Cocaine Screen U Marijuana (THC) Screen Ethyl Alcohol < 10 COVID-19 ([facility]) Negative COVID-19 Clin Com See Note 07/29/23 07/29/23 07/31/23 16:53 17:41 08:13 WBC RBC Hgb Hct MCV MCH MCHC RDW Plt Count MPV Immature Gran % (Auto) Neut % (Auto) Lymph % (Auto) [place] % (Auto) Eos % (Auto) Baso % (Auto) Lymph # (Auto) [place] # (Auto) Eos # (Auto) Baso # (Auto) Abs Immat Gran (auto) Absolute Neuts (auto) Absolute Nucleated RBC Nucleated RBC % (auto) PT INR VBG pH 7.43 VBG pCO2 31 VBG pO2 53 VBG HCO3 21 L VBG O2 Saturation 76.0 VBG Base Excess -2.2 Sodium 139 Potassium 4.2 Chloride 108 Carbon Dioxide 22 Anion Gap 13 BUN 11 Creatinine 0.73 Estim Creat Clear Calc 102.8 Estimated GFR > 60 Random Glucose Fasting Glucose 80 Estimat Average Glucose 105 Hemoglobin A1c % 5.3 Calcium 10.6 H D Magnesium Total Bilirubin 0.4 Direct Bilirubin AST 19 ALT 24 Alkaline Phosphatase 64 Total Protein 7.0 Albumin 4.2 Triglycerides 125 Cholesterol 184 LDL Cholesterol, Calc 106 H HDL Cholesterol 53 Vitamin B12 1005 H Folate 13.5 TSH 0.50 Beta HCG, Quant PTH Intact Pending Calcium (PTH Intact) Pending Urine Color Yellow Urine Appearance Clear Urine pH 5.5 Ur Specific [place] <= 1.005 Urine Protein Negative Urine Glucose (UA) Negative Urine Ketones 15 Urine Blood Negative Urine Nitrite Negative Ur Leukocyte Esterase Trace H Urine RBC 0-2 Urine WBC 0-5 Ur Squamous Epith Cells 6-10 Urine Bacteria Trace Hyaline Casts 0-2 Salicylates Urine Opiates Screen Not Detected Urine Fentanyl Screen Not Detected Acetaminophen Ur Barbiturates Screen Not Detected Ur Phencyclidine Scrn Not Detected Ur Amphetamines Screen Not Detected U Benzodiazepines Scrn Not Detected Urine Cocaine Screen Not Detected U Marijuana (THC) Screen Not Detected Ethyl Alcohol COVID-19 ([facility]) COVID-19 Clin Com DS: Summary Hospital Course Hospital Course: Admission to adult psychiatry for exacerbation of adjustment reaction with depression s/p discord with partner, alcohol use, 6-7 beers and overdose of 20 benadryl. Pt was able to straighten out the conflict with partner on admission and asked for discharge, agreeable to acceptance of out patient care and fearful of being on an inpt psychiatry unit. She was able to contract for safety, partner verified resolution of this precipitating conflict in addition to patient's validation. Time spent discussing smoking cessation with patient: 3 to 10 minutes Status at Discharge Functional status at discharge: independent ambulation Overall status at discharge: patient is progressing back to baseline Time Spent with Patient Time attestation: Total time managing care of this patient today ____ minutes. 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 Referrals: COUNSELING [Other] - 1 Week Yvette Pearce DNP [Primary Care Provider] - 08/06/23 2:45 pm Discharge Medications: Continued lorazepam 0.5 mg tablet 0.5 mg PO BID PRN (Reason: panic attack) albuterol sulfate 90 mcg/actuation HFA aerosol inhaler 1 puff inhalation Q4H PRN (Reason: Anxiety) cetirizine 10 mg Tablet 10 mg PO BEDTIME diphenhydramine HCl 25 mg Tablet 25 mg PO BEDTIME PRN (Reason: Insomnia) fluoxetine 20 mg capsule 20 mg PO DAILY nebivolol 20 mg tablet 20 mg PO QPM bupropion HCl (smoking deter) 150 mg tablet extended release 12 hr 150 mg PO BID omeprazole 10 mg capsule,delayed release(DR/EC) 10 mg PO DAILY Discharge Orders: Discharge Order (Routine); Ordered 08/01/23 Ordered By: Janene Eisenberg Diet: Advance to usual diet Activity on Discharge: As tolerated Stand Alone Forms: Patient Portal Discharge page, Community Support Care Plan Goals: Mood and Behavioral Stabilization Health Concerns: Mood and Behavioral Stabilization Plan of Treatment: Attend scheduled appointments Take medications as directed Assessment: Pt interviewed prior to discharge and found to be fully oriented and without SI/HI. Pt has resolved conflict with her partner and both agree she is safe to return to her home and activity. Pt has insight and demonstrates good judgment in terms of wanting to pursue treatment. Pt is not in imminent risk of harm to self or others and has a safety plan that includes presenting to the closest ER or calling 911 if feeling unsafe. Pt has been observed closely by nursing and unit staff throughout admission. Pt has not engaged in any behaviors that suggest dangerousness to self or others and has demonstrated appropriate behaviors and impulse control. Discharge Date/Time: 08/01/23 11:15
[2023-08-01 14:39] LABS: Calcium (PTHI) 10.3 mg/dL (8.6-10.2); PTHI 88 pg/mL (16-77)
== END 2023-08-01 11:15 | disposition home or self-care (01) | DRG 754 ==
LOC: HO.ED 21:04 → HO.PM5 07-30 19:57
PROVIDERS: Nurse Practitioner Family; Admitting Provider Social Worker; Emergency Provider Emergency Medicine; PCP Registered Nurse; Visit Provider Social Worker
DX: F32.9 Major depressive disorder, single episode, unspecified (principal); F17.210 Nicotine dependence, cigarettes, uncomplicated; F43.25 Adjustment disorder with mixed disturbance of emotions and conduct; T45.0X2A Poisoning by antiallergic and antiemetic drugs, intentional self-harm, initial encounter; Z71.6 Tobacco abuse counseling; Z20.822 Contact with and (suspected) exposure to COVID-19; Z79.899 Other long term (current) drug therapy
CPT/HCPCS: 36415; 80048; 80053; 80061; 80076; 80143; 80179; 80307; 81001; 82607; 82746; 82803; 83036; 83735; 83970; 84443; 84702; 85025; 85610; 87635; 93005; 99285; J2405; S9485

== ENCOUNTER → 2023-07-30 19:44 | Outpatient (BNV) | payer BC, SELFPAY | PROVIDERS: Admitting Provider Social Worker; Emergency Provider Emergency Medicine; PCP Registered Nurse; Visit Provider Clinical Nurse Specialist Psychiatric/Mental Health, Adult | DX: F33.2 Major depressive disorder, recurrent severe without psychotic features (principal); T14.91XA Suicide attempt, initial encounter | CPT/HCPCS: 90792; 99239 ==